=== PATIENT | female | born 2000 | race American Indian/Alaskan Native ===

== ENCOUNTER 2022-04-04 16:27 | Emergency (ER) | payer OTHER ==
[2022-04-04] MEDS ORDERED: ACETAMINOPHEN 500 MG TAB PO ONE (21:19)
[2022-04-04 21:39] LABS: Basophils # (Auto) 0.1 K/mm3 (0.0-0.1); Basophils % (Auto) 0.7 % (0.0-1.8); Eosinophils # (Auto) 0.1 K/mm3 (0.0-0.4); Eosinophils % (Auto) 1.1 % (0.0-4.3); Hematocrit 35.1 % (30.3-42.9); Hemoglobin 12.2 gm/dl (10.1-14.3); Lymphocytes # (Auto) 1.8 K/mm3 (1.2-5.4); Lymphocytes % (Auto) 21.2 % (13.4-35.0); Mean Corpuscular HGB Conc 35 % (30-34); Mean Corpuscular Volume 97 fl (79-97); Monocytes # (Auto) 0.6 K/mm3 (0.0-0.8); Monocytes % (Auto) 6.9 % (0.0-7.3); Platelet Count 290 K/mm3 (140-440); Red Blood Count 3.63 M/mm3 (3.65-5.03); Red Cell Distribution Width 12.1 % (13.2-15.2)
[2022-04-04 21:57] LABS: Alanine Aminotransferase 8 units/L (7-56); Albumin 4.5 g/dL (3.9-5); BUN/Creatinine Ratio 9; Blood Urea Nitrogen 7 mg/dL (7-17); Calcium 9.3 mg/dL (8.4-10.2); Hemolysis Index 7
--- NOTE | 2022-04-04 22:41 | Emergency Department Report ---
ED General Adult HPI - General Chief complaint: Medical Clearance Stated complaint: LT SIDE PAIN Time Seen by Provider: 04/04/22 21:14 Source: patient, family Mode of arrival: Ambulatory Limitations: No Limitations - History of Present Illness Initial comments: Is a 21-year-old female who presents for left groin pain x1 week. Patient states she is currently been evaluated by hematology for rule out abdominal CA patient states family history paternal and maternal for gastric CA. States she has ultrasound scheduled for 04/07/2022, and CT scan of abdomen and pelvis for 04/13/2022. Patient states he presents tonight for increased pain to the left groin. There is no swelling, no bulging ,no history of hernia, no nausea, no vomiting, no fever or chills. Patient denies dysuria frequency or urgency. Last menstrual cycle 1 week ago. Patient denies vaginal discharge patient is not sexually active. Severity scale (0 -10): 1 - Related Data Previous Rx's Medication Instructions Recorded Last Taken Type Ibuprofen [Motrin 800 MG tab] 800 mg PO Q8HR PRN #30 tablet 04/04/22 Unknown Rx cephALEXin [Keflex] 500 mg PO BID 7 Days #14 cap 04/04/22 Unknown Rx Allergies Allergy/AdvReac Type Severity Reaction Status Date / Time No Known Allergies Allergy Verified 04/04/22 17:01 ED Review of Systems ROS: Stated complaint: LT SIDE PAIN Other details as noted in HPI Constitutional: denies: chills, fever Eyes: denies: eye pain, eye discharge, vision change ENT: denies: ear pain, throat pain Respiratory: denies: cough, shortness of breath, wheezing Cardiovascular: as per HPI Endocrine: no symptoms reported Gastrointestinal: other. denies: abdominal pain, nausea, vomiting, diarrhea, constipation (Left groin pain), hematemesis, melena Genitourinary: denies: urgency, dysuria, frequency, hematuria, discharge, abnormal menses Musculoskeletal: denies: back pain, joint swelling, arthralgia Skin: denies: rash, lesions Neurological: denies: headache, weakness, paresthesias, vertigo Psychiatric: denies: anxiety, depression Hematological/Lymphatic: denies: easy bleeding, easy bruising ED Past Medical Hx - Past Medical History Hx Asthma: Yes - Medications Home Medications: Home Medications Medication Instructions Recorded Confirmed Last Taken Type Ibuprofen [Motrin 800 MG tab] 800 mg PO Q8HR PRN #30 tablet 04/04/22 Unknown Rx cephALEXin [Keflex] 500 mg PO BID 7 Days #14 cap 04/04/22 Unknown Rx ED Physical Exam - General Limitations: No Limitations General appearance: alert, in no apparent distress - Head Head exam: Present: normocephalic, normal inspection - Eye Eye exam: Present: EOMI Pupils: Present: normal accommodation - ENT ENT exam: Present: mucous membranes moist - Neck Neck exam: Present: normal inspection, full ROM. Absent: tenderness, lymphadenopathy - Respiratory Respiratory exam: Present: normal lung sounds bilaterally, chest wall tenderness. Absent: respiratory distress, wheezes - Cardiovascular Cardiovascular Exam: Present: regular rate, normal rhythm, normal heart sounds. Absent: systolic murmur, diastolic murmur, rubs, gallop - GI/Abdominal GI/Abdominal exam: Present: soft, normal bowel sounds. Absent: distended, tenderness, guarding, rebound, rigid, bruit, hernia - Expanded GI/Abdominal Exam Expanded GI/Abdominal exam: Absent: psoas sign, obturator sign, heel tap sign, Mejia's sign, Rovsing's sign, tenderness at [place]bur[place]'s Point, ascites - Rectal Rectal exam: Present: deferred - Extremities Exam Extremities exam: Present: normal inspection, full ROM, normal capillary refill. Absent: tenderness - Back Exam Back exam: Present: normal inspection, full ROM. Absent: CVA tenderness (R), CVA tenderness (L) - Neurological Exam Neurological exam: Present: alert, oriented X3, CN II-XII intact - Expanded Neurological Exam Expanded Patient oriented to: Present: person, place, time Speech: Present: fluid speech Motor strength exam: RUE: 5, LUE: 5, RLE: 5, LLE: 5 Best Eye Response ([place]): (4) open spontaneously Best Motor Response ([place]): (6) obeys commands Best Verbal Response ([place]): (5) oriented [place] Total: 15 - Psychiatric Psychiatric exam: Present: normal affect, normal mood - Skin Skin exam: Present: warm, dry, intact, normal color. Absent: rash ED Course Vital Signs 04/04/22 16:56 Temperature 98.5 F Pulse Rate 69 Respiratory 14 Rate Blood Pressure 122/88 O2 Sat by Pulse 99 Oximetry ED Medical Decision Making - Lab Data Result diagrams: 04/04/22 20:45 04/04/22 20:45 Labs 04/04/22 04/04/22 04/04/22 20:45 20:45 21:28 WBC 8.5 RBC 3.63 L Hgb 12.2 Hct 35.1 MCV 97 MCH 34 H MCHC 35 H RDW 12.1 L Plt Count 290 Lymph % (Auto) 21.2 [place] % (Auto) 6.9 Eos % (Auto) 1.1 Baso % (Auto) 0.7 Lymph # (Auto) 1.8 [place] # (Auto) 0.6 Eos # (Auto) 0.1 Baso # (Auto) 0.1 Seg Neutrophils % 70.1 H Seg Neutrophils # 5.9 Sodium 140 Potassium 3.5 L Chloride 105.0 Carbon Dioxide 26 Anion Gap 13 BUN 7 Creatinine 0.8 Estimated GFR > 60 BUN/Creatinine Ratio 9 Glucose 109 H Calcium 9.3 Total Bilirubin 0.40 AST 11 ALT 8 Alkaline Phosphatase 46 Total Protein 7.2 Albumin 4.5 Albumin/Globulin Ratio 1.7 Amylase 59 Lipase 19 TSH 1.230 Urine Color Urine Turbidity Urine pH Ur Specific [place] Urine Protein Urine Glucose (UA) Urine Ketones Urine Blood Urine Nitrite Urine Bilirubin Urine Urobilinogen Ur Leukocyte Esterase Urine WBC (Auto) Urine RBC (Auto) U Epithel Cells (Auto) Urine Mucus 04/04/22 22:27 WBC RBC Hgb Hct MCV MCH MCHC RDW Plt Count Lymph % (Auto) [place] % (Auto) Eos % (Auto) Baso % (Auto) Lymph # (Auto) [place] # (Auto) Eos # (Auto) Baso # (Auto) Seg Neutrophils % Seg Neutrophils # Sodium Potassium Chloride Carbon Dioxide Anion Gap BUN Creatinine Estimated GFR BUN/Creatinine Ratio Glucose Calcium Total Bilirubin AST ALT Alkaline Phosphatase Total Protein Albumin Albumin/Globulin Ratio Amylase Lipase TSH Urine Color Yellow Urine Turbidity Slightly-cloudy Urine pH 5.0 Ur Specific [place] 1.020 Urine Protein <15 mg/dl Urine Glucose (UA) Neg Urine Ketones Neg Urine Blood Sm Urine Nitrite Neg Urine Bilirubin Neg Urine Urobilinogen < 2.0 Ur Leukocyte Esterase Sm Urine WBC (Auto) 11.0 H Urine RBC (Auto) 2.0 U Epithel Cells (Auto) 17.0 H Urine Mucus 3+ - Medical Decision Making Labs noted as above UA noted for mild blood leukocytes and bacteria given symptoms we will treat for UTI, patient will continue to follow-up with hematology and primary care doctor for ultrasound and CT scan as scheduled. However it would not be reasonable to do ultrasound or CT scan tonight as there is no hematuria no fever no chills not likely this is Pyelonephritis l or obstructing renal stone. Will DC to home with prescription for Keflex, NSAIDs as needed pain, follow-up with primary care doctor in 1 day as scheduled. Patient verbalized agreement and understanding with discharge plan will DC to home in stable condition at this time Critical care attestation.: If time is entered above; I have spent that time in minutes in the direct care of this critically ill patient, excluding procedure time. ED Disposition Clinical Impression: UTI (urinary tract infection) Qualifiers: Urinary tract infection type: acute cystitis Hematuria presence: without hematuria Qualified Code(s): N30.00 - Acute cystitis without hematuria Disposition: HOME / SELF CARE / HOMELESS Is pt being admited?: No Does the pt Need Aspirin: No Condition: Stable Instructions: Urinary Tract Infection, Adult Additional Instructions: Take medications as prescribed, follow-up with your doctor in 1 day for ultrasound as scheduled, and on April [address] abdomen and pelvis as scheduled. Return to emergency department should symptoms worsen. Prescriptions: cephALEXin [Keflex] 500 mg PO BID 7 Days #14 cap Ibuprofen [Motrin 800 MG tab] 800 mg PO Q8HR PRN #30 tablet PRN Reason: Pain Referrals: KATHLEEN ALEXANDER MD [Staff Physician] - 2-3 Days Forms: Work/School Release Form(ED) Time of Disposition: 23:24
[2022-04-04 22:42] LABS: Bilirubin,Urine NEG (Negative); Blood,Urine SM (Negative); Color,Urine Yellow (Yellow); Protein,Urine <15 mg/dL mg/dL (Negative); Urobilinogen,Urine < 2.0 mg/dL (<2.0)
[2022-04-04 22:50] LABS: Mucus,Urine 3+ /HPF
[2022-04-04 23:30] LABS: HCG Qualitative,Urine Negative (Negative)
[2022-04-04 23:52] VITALS: BP 116/68
== END 2022-04-04 23:59 | disposition home or self-care (01) ==
LOC: ED 16:27
DX: N39.0 Urinary tract infection, site not specified (principal); J45.909 Unspecified asthma, uncomplicated; Z79.899 Other long term (current) drug therapy
CPT/HCPCS: 36415; 80053; 81001; 81025; 82150; 83690; 84443; 85025; 87086; 99283

== ENCOUNTER 2022-04-07 09:47 | Outpatient (CLI) | payer OTHER ==
--- NOTE | 2022-04-07 13:39 | Ultrasound Report ---
ULTRASOUND PELVIS INDICATION / CLINICAL INFORMATION: N92.0. Abnormal uterine bleeding. TECHNIQUE: Transabdominal and Transvaginal. Duplex Color Doppler used: Yes. COMPARISON: None available FINDINGS: UTERUS: - Size (cm): 7.8 x 4.1 x 2.5 cm. - Endometrial Complex (if present): In the fundus and upper body endometrial stripe measures only 4 m m without obvious abnormality. However, in the lower uterine segment of the endometrium is more focal ly prominent measuring up to 1 cm with a small amount of fluid seen in the canal in this segment exte nding into the cervix. No defined mass is identified but the wall prominence in the endometrium in th is area is mildly asymmetric. - Mass or cyst: None. RIGHT ADNEXA: The right ovary measures 3.5 x 3.1 x 2.8 cm. Dominant follicle measuring 2.2 cm. Normal color Doppler blood flow. LEFT ADNEXA: The left ovary measures 2.8 x 2.3 x 1.9 cm. No significant ovarian cyst or mass. Normal color Doppler blood flow. URINARY BLADDER: No significant abnormality. FREE FLUID: Minimal fluid is noted in the posterior cul-de-sac. ADDITIONAL FINDINGS: None. IMPRESSION: 1. Focal prominence of the endometrium in the lower uterine segment without defined mass though with mild wall asymmetry. This could be significant, particularly given the history. Further investigation is suggested. 2. Otherwise, no significant abnormality. Scribed by: Mia Arreguin RDMS, EJNNA, FABIOLA Scribed: 04/07/2022 11:14 AM I have reviewed the images, agree with this report, and edited this report as needed. Signer Name: Torrey Ballard MD Signed: 04/07/2022 1:35 PM Workstation Name: [id number]
== END 2022-04-07 09:48 | disposition home or self-care (01) ==
LOC: US 09:47
PROVIDERS: ATTEND Internal Medicine Hematology & Oncology
DX: N92.0 Excessive and frequent menstruation with regular cycle (principal)
CPT/HCPCS: 76830; 76856

== ENCOUNTER 2022-04-13 09:15 | Outpatient (CLI) | payer OTHER ==
--- NOTE | 2022-04-13 11:18 | Cat Scan Report ---
CT ABDOMEN AND PELVIS WITH CONTRAST INDICATION / CLINICAL INFORMATION: R19.00. Unexplained weight loss. Abnormal pelvic ultrasound. Abnor mal uterine bleeding. TECHNIQUE: Axial CT images were obtained through the abdomen and pelvis after 100 cc of Omnipaque 300 IV contras t. Sagittal and coronal reformatted images. All CT scans at this location are performed using CT dose reduction for ALARA by means of automated exposure control. COMPARISON: Pelvic ultrasound dated 04/07/2022 FINDINGS: LOWER CHEST: No significant abnormality. LIVER: No significant abnormality. GALLBLADDER: No significant abnormality. BILE DUCTS: No significant abnormality. PANCREAS: No significant abnormality. SPLEEN: No significant abnormality. ADRENALS: No significant abnormality. RIGHT KIDNEY and URETER: No significant abnormality. LEFT KIDNEY and URETER: No significant abnormality. STOMACH and SMALL BOWEL: No significant abnormality. COLON: No significant abnormality. APPENDIX: Not clearly identified. PERITONEUM: No free fluid. No free air. No fluid collection. LYMPH NODES: No significant adenopathy. AORTA and ARTERIES: No significant abnormality. IVC and VEINS: No significant abnormality. URINARY BLADDER: No significant abnormality. REPRODUCTIVE ORGANS: The uterus is anteverted and normal size. No uterine fibroid disease. The endome trium measures 5-6 mm in thickness on CT. The previously described area of endometrial thickening in the lower uterine segment is not demonstrated on CT. No suggestion of endometrial mass. This may have represented blood products on the previous pelvic ultrasound. A 2.2 cm peripherally enhancing right ovarian cyst is identified, unchanged. The left ovary is unremarkable. ADDITIONAL FINDINGS: None. SKELETAL SYSTEM: No significant abnormality. IMPRESSION: 2.2 cm right ovarian cyst. The uterus and endometrium are unremarkable on today's CT. No suggestion of endometrial mass. See abo ve. Otherwise unremarkable exam. Signer Name: Aaron Bermudez Jr, MD Signed: 04/13/2022 11:11 AM Workstation Name: [id number]
== END 2022-04-13 09:16 | disposition home or self-care (01) ==
LOC: CT 09:15
PROVIDERS: ATTEND Internal Medicine
DX: N83.201 Unspecified ovarian cyst, right side (principal); R19.00 Intra-abdominal and pelvic swelling, mass and lump, unspecified site
CPT/HCPCS: 74177; Q9967; 36415

== ENCOUNTER 2022-04-28 07:44 | Outpatient (CLI) | payer OTHER ==
[2022-04-28] MEDS ORDERED: SODIUM CHLORIDE 0.9% 500 ML 500 ML IV SCH (09:00)
[2022-04-28] MEDS ORDERED: LIDOCAINE (1%) 10 MG/1 ML VIAL 20 ML MDV INFILTRATI SCH (09:00)
[2022-04-28] MEDS ORDERED: ONDANSETRON 4 MG/2 ML INJ IV SCH (09:00)
[2022-04-28] MEDS ORDERED: HYDROmorphone 1 MG/1 ML INJ IV SCH ×2 (09:00)
[2022-04-28 09:01] LABS: Basophils # (Auto) 0.1 K/mm3 (0.0-0.1); Basophils % (Auto) 1.3 % (0.0-1.8); Eosinophils # (Auto) 0.1 K/mm3 (0.0-0.4); Eosinophils % (Auto) 1.5 % (0.0-4.3); Hematocrit 32.3 % (30.3-42.9); Hemoglobin 10.8 gm/dl (10.1-14.3); Lymphocytes # (Auto) 1.3 K/mm3 (1.2-5.4); Lymphocytes % (Auto) 15.4 % (13.4-35.0); Mean Corpuscular HGB Conc 33 % (30-34); Mean Corpuscular Volume 98 fl (79-97); Monocytes # (Auto) 0.8 K/mm3 (0.0-0.8); Monocytes % (Auto) 9.3 % (0.0-7.3); Platelet Count 274 K/mm3 (140-440); Red Blood Count 3.28 M/mm3 (3.65-5.03); Red Cell Distribution Width 12.4 % (13.2-15.2)
[2022-04-28 09:15] LABS: INR 0.95 (0.87-1.13)
[2022-04-28 09:20] LABS: Blood Urea Nitrogen 10 mg/dL (7-17); Calcium 9.1 mg/dL (8.4-10.2); Hemolysis Index 111
[2022-04-28 09:25] LABS: BUN/Creatinine Ratio 17
[2022-04-28] MEDS ORDERED: diphenhydrAMINE 50 MG/ML VIAL IV ONE (11:36)
[2022-04-28 12:33] VITALS: BP 108/67
--- NOTE | 2022-04-28 12:55 | Cat Scan Report ---
CT-GUIDED BONE MARROW ASPIRATION AND BIOPSY INDICATION / CLINICAL INFORMATION: R19.00. TECHNIQUE: All CT scans at this location are performed using CT dose reduction for ALARA by means of automated exposure control. COMPARISON: None available. PROCEDURE: The risks (including but not limited to bleeding and infection) and benefits were explained to the pa tient and informed consent was obtained. A time out procedure was performed. The procedure site was prepped and draped in the usual sterile fashion and lidocaine was used for local anesthesia. Under CT guidance, the right posterior iliac wing was selected for biopsy. An 11 gauge needle was ad vanced to the posterior margin of the iliac wing, cortex breached, and 6 mL bone marrow aspirate obta ined. The needle was then advanced, and a bone marrow biopsy was obtained measuring approximately 1. 5 cm. Samples were given directly to the signal technician who was present during the exam. The patient tolerated the procedure well with no immediate complications. IMPRESSION: 1. Technically successful CT-guided bone marrow aspirate and biopsy. Signer Name: Philip Barrios DO Signed: 04/28/2022 12:51 PM Workstation Name: [id number]
== END 2022-04-28 12:42 | disposition home or self-care (01) ==
LOC: CT 07:44 → CATHLABREC 07:44
PROVIDERS: ATTEND Internal Medicine Hematology & Oncology
DX: R19.00 Intra-abdominal and pelvic swelling, mass and lump, unspecified site (principal); J45.909 Unspecified asthma, uncomplicated; R63.4 Abnormal weight loss; Z91.018 Allergy to other foods; Z79.899 Other long term (current) drug therapy
CPT/HCPCS: 36415; 38222; 77012; 80048; 85025; 85097; 85610; 88161; 88305; 88311; J1170; J1200; J2405; 38221; 85007; J7040